=== PATIENT | male | born 1985 | race African-American/Black ===

== ENCOUNTER 2017-01-01 21:36 | Emergency (ER) | payer OTHER ==
[~2017-01-01] VITALS: Ht 188 cm; Wt 132.0 kg
[~2017-01-01 21:36] MED LIST: ASPIRIN EC81 M1 PO; ZOFRAN4 M2 PO
[2017-01-01 22:21] LABS: ABSOLUTE BASOPHIL COUNT 0.1 /CUMM (0.0-0.2); ABSOLUTE EOSINOPHIL COUNT 0.2 /CUMM (0.0-0.7); ABSOLUTE GRANULOCYTE CT 4.8 /CUMM (1.4-6.5); ABSOLUTE LYMPH COUNT 3.3 /CUMM (1.2-3.4); ABSOLUTE MONOCYTE COUNT 1.1 /CUMM (0.10-0.60); BASOPHIL % 0.6 % (0.0-2.0); EOSINOPHIL % 1.7 % (0-5); GRANULOCYTE % 51.6 % (42.2-75.2); HEMATOCRIT 45.5 % (42-52); MEAN CORPUSCULAR HGB 28.9 PG (27.0-31.0); MEAN CORPUSCULAR VOLUME 87.6 FL (80.0-94.0); MEAN PLATELET VOLUME 7.8 FL (7.4-10.4); PLATELET COUNT 277 /CUMM (130-400); RBC DISTRIBUTION WIDTH 13.8 % (11.5-14.5); WHITE BLOOD CELL COUNT 9.4 /CUMM (4.8-10.8)
--- NOTE | 2017-01-01 23:02 | ED CARDIAC/CP/PALPITATIONS ---
History of Present Illness General Chief Complaint: Chest Pain Stated Complaint: PT IS HAVING CHEST PAINS Source: patient Exam Limitations: no limitations Vital Signs & Intake/Output Vital Signs & Intake/Output Vital Signs Date Time Temp Pulse Resp B/P B/P Pulse O2 O2 Flow FiO2 Mean Ox Delivery Rate 01/02 0216 98.1 64 18 134/82 99 Room Air 01/01 2328 96.7 66 18 137/80 98 Room Air 01/01 2327 Room Air 01/01 2153 98.8 72 16 147/85 99 Room Air ED Intake and Output 01/02 0000 01/01 1200 Intake Total 0 Output Total Balance 0 Intake, Oral 0 Patient 291 lb Weight Weight Reported by Patient Measurement Method Allergies Coded Allergies: Penicillins (HIVES 07/09/16) Reconcile Medications Aspirin (Ecotrin*) 81 MG TABLET. 1 TAB PO DAILY HEART/BLOOD (Reported) Triage Note: TRIAGE: LEFT SIDED CHEST PAIN RADIATES UP LEFT SIDED NECK. PAIN IS OFF AND ON, STARTED A WEEK AGO BUT WORSE TODAY. DENIES SOB, DENIES DIAPHORESIS. TOOK TWO ASA EARLIER. STATES HE HAS HX AFIB, SINUS RATE [address]KG[address] FOLLOW[address] BY [address] SWAIN. Triage Nurses Notes Reviewed? yes HPI: This patient is a 31-year-old male with a past medical history including atrial fibrillation who presented to the emergency department today for evaluation of chest pain. The patient reported that his chest pain has been coming and going intermittently over the last week. He reported that when he was driving home from work today and he was gripping the steering wheel, he felt pain in his left chest more intense than before. He reported that it was still intermittent today, but, "heavier." He reported it feels like, "as if he were to let him leave and then get pain in your pec." He reported the pain gets up to a 7 out of 10 and is nonradiating. He did report some, "shocks," to his neck into his shoulder on the left. He denied any numbness or tingling in his extremities. No jaw pain or arm pain. He denied any abdominal pain, diaphoresis, nausea, vomiting, visual changes, difficulty breathing, back pain, or any other associated symptoms. (ABI JUAREZ,ANDREINA) Past History Travel History Traveled to [place] past 21 day No Medical History Any Pertinent Medical History? 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 No (ANDREINA ALEX PA-C) Review of Systems Review of Systems Constitutional: Reports: no symptoms. EENTM: Reports: no symptoms. Respiratory: Reports: no symptoms. Cardiovascular: Reports: see HPI. GI: Reports: no symptoms. Genitourinary: Reports: no symptoms. Musculoskeletal: Reports: no symptoms. Skin: Reports: no symptoms. Neurological/Psychological: Reports: no symptoms. All Other Systems: Reviewed and Negative (ANDREINA ALEX PA-C) Physical Exam Physical Exam Cardiovascular: regular rate/rhythm, normal peripheral pulses, no murmurs, rubs, or gallops. No JVD or carotid bruits Comments: Well-developed well-nourished person in no acute distress HEENT: Normal EENT exam, head normocephalic, moist mucous membranes PERRLA bilaterally Neck: Supple with no midline tenderness Back: Normal inspection Respiratory: Tenderness to palpation over the anterior left chest wall. No respiratory distress. Speaking in full sentences. Lungs clear to auscultation bilaterally with no wheezes, rales, or rhonchi Abdomen: Soft, nontender and nondistended with no rebound or guarding Extremity: Normal and equal pulses. Capillary refill less than 2 seconds Neuro: Alert oriented x3, cranial nerves II through XII grossly intact. Skin: No appreciable rash on exposed skin, skin is warm and dry. Psych: Mood and affect is normal Core Measures ACS in differential dx? Yes Severe Sepsis Present: No Septic Shock Present: No (ANDREINA ALEX PA-C) Progress Differential Diagnosis: AMI, aortic dissection, atrial fibrillation, cholecystitis, CHF/pulm edema, costochondritis, hyperkalemia, hypovolemia, hyperthyroid, hyperventilation, intracranial hemorrhage, musculoskeletal pain, myocarditis, pancreatitis, pericarditis, pneumonia, pneumothorax, PSVT, pulmonary embolism, PUD/GERD, PVCs/PACs, unstable angina Plan of Care: Orders Procedure Date/time Status TROPONIN LEVEL 01/02 012 Complete EKG 01/02 012 Active Add-on Test (ER Only) 01/01 2300 Active THYROID STIMULATING HORMONE 01/01 2153 Complete LIPID PANEL 01/01 2153 Complete FREE T4 01/01 2153 Complete TROPONIN LEVEL 01/01 2150 Complete COMPREHENSIVE METABOLIC PANEL 01/01 2150 Complete CBC WITHOUT DIFFERENTIAL 01/01 2150 Complete EKG 01/01 2138 Active Laboratory Tests 01/02/17 0129: Troponin I < 0.01 01/01/172152: Anion Gap 12, Estimated GFR > 60, BUN/Creatinine Ratio 18.0, Glucose 111 H, Calcium 9.6, Total Bilirubin 0.4, AST 46, ALT 102 H, Alkaline Phosphatase 59, Troponin I < 0.01, Total Protein 7.8, Albumin 4.5, Globulin 3.3, Albumin/ Globulin Ratio 1.4, Triglycerides 257 H, Cholesterol 183, LDL Cholesterol, Calc 93, HDL Cholesterol 39 L, Cholesterol/HDL Ratio 5 H, TSH 1.760, Free T4 0.82, CBC w Diff NO MAN DIFF REQ, RBC 5.20, MCV 87.6, MCH 28.9, RDW 13.8, MPV 7.8, Gran % 51.6, Lymphocytes % 34.8, Monocytes % 11.3 H, Eosinophils % 1.7, Basophils % 0.6, Absolute Granulocytes 4.8, Absolute Lymphocytes 3.3, Absolute Monocytes 1.1 H, Absolute Eosinophils 0.2, Absolute Basophils 0.1, PUBS MCHC 33.0 Diagnostic Imaging: Viewed by Me: Radiology Read. Discussed w/RAD: Radiology Read. CXR Impression: PATIENT: KILO CANTU PRESENT AGE: 31 PATIENT ACCOUNT NO: [id number] : 85 LOCATION: [facility] ORDERING PHYSICIAN: ANDREINA ALEX PA-C SERVICE DATE: 01/01/17 EXAM TYPE: RAD - XRY-CHEST XRAY, PA AND LATERAL EXAMINATION: XR CHEST CLINICAL INFORMATION: Chest pain, rule out cardiomegaly COMPARISON: 02/28/2015 TECHNIQUE: 2 views of the chest were obtained. FINDINGS: The lungs are clear with no focal consolidation. No evidence of pneumothorax, pulmonary edema, or pleural effusions. The cardiomediastinal silhouette is unremarkable. No acute osseous findings. IMPRESSION: No acute cardiopulmonary findings. DICTATED BY: BONNIE JOYCE MD DATE/TIME DICTATED:01/01/172331 DRY CHAIN WORKER:ALANA DATE/TIME TRANSCRIBED:01/01/172331 CONFIDENTIAL, DO NOT COPY WITHOUT APPROPRIATE AUTHORIZATION. <Electronically signed in Other Vendor System> SIGNED BY: BONNIE JOYCE MD 01/01/172335 Initial ED EKG: normal axis, normal intervals, normal sinus rhythm, no ST T wave changes, 68 BPM Hand-Off Endorsed To: KILO ONTIVEROS MD Endorsed Time: 0100 Pending: EKG, labs (ANDREINA ALEX PA-C) Repeat EKG: unchanged (KILO ONTIVEROS MD) Departure Departure Disposition: HOME OR SELF CARE Condition: Stable Clinical Impression Primary Impression: Musculoskeletal chest pain Referrals: PATIENT HAS NO PRIMARY CARE DR (PCP/Family) Additional Instructions: Please avoid strenuous activity over the next several days. Follow-up with you automatic bandsaw tender. Return for any worsening symptoms or concerns. Departure Forms: Customer Survey General Discharge Information (ANDREINA ALEX PA-C) PA/ECONOMIC DEVELOPER Co-Sign Statement Statement: ED Attending supervision documentation- [X] I saw and evaluated the patient. I have also reviewed all the pertinent lab results and diagnostic results. I agree with the findings and the plan of care as documented in the PA's/ECONOMIC DEVELOPER's documentation. [X] I have reviewed the ED Record and agree with the PA's/ECONOMIC DEVELOPER's documentation. [] Additions or exceptions (if any) to the PAs/ECONOMIC DEVELOPER's note and plan are summarized below: [] (KILO ONTIVEROS MD) Critical Care Note Critical Care Note Critical Care Time: non-applicable (ANDREINA ALEX PA-C)
--- NOTE | 2017-01-01 23:36 | RADIOLOGY REPORT ---
EXAMINATION: XR CHEST CLINICAL INFORMATION: Chest pain, rule out cardiomegaly COMPARISON: 02/28/2015 TECHNIQUE: 2 views of the chest were obtained. FINDINGS: The lungs are clear with no focal consolidation. No evidence of pneumothorax, pulmonary edema, or pleural effusions. The cardiomediastinal silhouette is unremarkable. No acute osseous findings. IMPRESSION: No acute cardiopulmonary findings.
[2017-01-02 02:16] VITALS: BP 134/82
== END 2017-01-02 02:39 ==
LOC: ERH 21:36
PROVIDERS: Emergency Medicine
DX: R07.89 Other chest pain (principal)
CPT/HCPCS: 93005; 93010